=== PATIENT | male | born 1980 | race Caucasian/White ===

== ENCOUNTER 2024-08-30 08:52 | Day surgery (SDC) | payer BC ==
[~2024-08-30 08:52] MED LIST: Midazolam 1 MG/ML 2 ML SDV ONE; Propofol 200 MG/20 ML SDV ONE; Sodium Chloride 0.9% 10 ML Syringe FLUSH PRN
[2024-08-30] MEDS: Lactated Ringers 1,000 ML IV SCH (09:37)
[2024-08-30 12:48] VITALS: BP 111/67; PULSE 73
== END 2024-08-30 11:32 | disposition home or self-care (01) ==
LOC: LL.SDS 08:52
PROVIDERS: ATTEND Surgery
DX: Z12.11 Encounter for screening for malignant neoplasm of colon (principal); D12.4 Benign neoplasm of descending colon; D12.2 Benign neoplasm of ascending colon; D12.3 Benign neoplasm of transverse colon; K40.90 Unilateral inguinal hernia, without obstruction or gangrene, not specified as recurrent; F41.9 Anxiety disorder, unspecified; Z87.891 Personal history of nicotine dependence
CPT/HCPCS: 00811; J2250; J2704; J7120